=== PATIENT | male | born 1975 | race Caucasian/White ===

== ENCOUNTER 2024-12-08 17:36 | Emergency (ER) | payer OTHER ==
[2024-12-08] VITALS (27 sets, daily range): BP systolic 94–138; BP diastolic 70–106
[~2024-12-08] VITALS: Ht 177.8 cm; Wt 99.0 kg
[~2024-12-08 17:36] MED LIST: SPIRONOLACT25 MG PO
[2024-12-08] MEDS ORDERED: dilTIAZem HCL 50 MG/10 ML SDV IV ONE (17:55)
[2024-12-08] MEDS ORDERED: FOLIC ACID 1 MG/TAB PO ONE (18:05)
[2024-12-08] MEDS ORDERED: THIAMINE HCL 100 MG/ML 2ML VIAL IV ONE (18:05)
[2024-12-08] MEDS ORDERED: SODIUM CHLORIDE 0.9% 1,000 ML IV ONE ×3 (18:05→21:45)
[2024-12-08] MEDS ORDERED: LORazepam 2 MG/ML IV ONE ×2 (18:10→19:55)
[2024-12-08] MEDS ORDERED: PIPERACILLIN Sodium-Tazobactam 3.375 GM in SODIUM CHLORIDE 0.9% 100 ML IV ONE (18:15)
[2024-12-08 18:29] LABS: HEMATOCRIT 27.2 % (39.0-50.0); HEMOGLOBIN 7.2 g/dl (14.0-18.0); IMMATURE GRANULOCYTES 0.2 % (0.0-5.0); MEAN CORPUSCULAR HGB 16.9 pG CALC (26.0-32.0); MEAN CORPUSCULAR HGB CONC 26.5 g/dL CAL (32.0-36.0); PLATELET COUNT 432 thou/uL (130-400); RED BLOOD COUNT 4.27 mill/uL (4.70-6.10); RED CELL DISTRI WIDTH 23.7 % (11.5-15.5)
[2024-12-08 18:40] LABS: BILIRUBIN, TOTAL 11.3 mg/dL (0.2-1.3); DIRECT BILIRUBIN 0.9 mg/dl (0.0-0.3); MAGNESIUM 1.3 mg/dL (1.6-2.3)
[2024-12-08 18:46] LABS: ACT PARTIAL THROMBO TIME 36.7 SECONDS (20.0-32.5); CREATININE 2.2 mg/dL (0.7-1.3); POTASSIUM 4.5 mmol/l (3.5-5.1); PROTHROMBIN TIME 20.2 SECONDS (9.0-12.5)
[2024-12-08 18:52] LABS: MANUAL DIFFERENTIAL YES; MEAN CELL VOLUME 63.7 fL CALC (80.0-100.0)
[2024-12-08 18:57] LABS: NUCLEATED RED BLOOD CELL 4 /100WBC (0-1); POLYCHROMASIA FEW
[2024-12-08 18:58] LABS: ACANTHOCYTES FEW; ANISOCYTOSIS MARKED; HELMET CELLS FEW; HYPOCHROMIA MODERATE; MICROCYTOSIS MARKED; POIKILOCYTOSIS FEW; TEAR DROP CELLS FEW
[2024-12-08 18:59] LABS: PLATELET ESTIMATE SLIGHT INCREASE
[2024-12-08 19:10] LABS: TSH, 3RD GENERATION 4.1 uIU/mL (0.47 - 4.68)
[2024-12-08] MEDS ORDERED: MAGNESIUM SULFATE HEPTAHYDRATE 50 ML IV ONE (19:55)
[2024-12-08 21:22] LABS: URINE BLOOD DIPSTICK Moderate (NEGATIVE); URINE COLOR Dark yellow; URINE GLUCOSE - DIPSTICK Negative (NEGATIVE); URINE KETONE Trace mg/dL (NEGATIVE); URINE LEUK ESTERASE Negative (NEGATIVE); URINE NITRITE - DIPSTICK Negative (Negative); URINE PROTEIN - DIPSTICK 100 mg/dL (NEG-TRACE); URINE SPECIFIC GRAVITY 1.025
[2024-12-08 21:24] LABS: URINE RBC 0-2 RBC/hpf (0-5); URINE SPERM FEW hpf (NONE-RARE)
[2024-12-08 21:25] LABS: URINE AMORPH SEDIMENT FEW hpf (NONE-FER)
== END 2024-12-08 21:45 | disposition short-term general hospital (02) | DRG 309 ==
LOC: ED 17:36
PROVIDERS: Emergency Medicine
DX: I48.91 Unspecified atrial fibrillation (principal); R17 Unspecified jaundice; D64.9 Anemia, unspecified; F10.10 Alcohol abuse, uncomplicated; Z20.822 Contact with and (suspected) exposure to COVID-19
CPT/HCPCS: J1953; J2060; J2543; J3411; J3475